=== PATIENT | female | born 1955 | race Caucasian/White ===

== ENCOUNTER 2017-07-19 12:37 | Emergency (ER) | payer OTHER ==
[~2017-07-19 12:37] MED LIST: CELEXA20 MG PO; Estrogen PO; KLONOPIN1 MG PO; MOTRIN800 MG PO; NOR10T PO; Norco PO; PRILOSEC20 MG PO; ROBAXIN-750750 MG GT
== END 2017-07-19 13:13 | disposition left against medical advice (07) ==
LOC: ED 12:37
DX: Z53.21 Procedure and treatment not carried out due to patient leaving prior to being seen by health care provider (principal)

== ENCOUNTER 2017-07-19 15:44 | Emergency (ER) | payer OTHER ==
[2017-07-19 19:19] VITALS: BP 134/89
== END 2017-07-19 19:19 | disposition home or self-care (01) ==
LOC: ED 15:44
DX: M54.5 Low back pain (principal); G89.29 Other chronic pain; N39.0 Urinary tract infection, site not specified; M19.90 Unspecified osteoarthritis, unspecified site; Z88.2 Allergy status to sulfonamides
CPT/HCPCS: J1885

== ENCOUNTER 2017-08-17 07:57 | Emergency (ER) | payer OTHER ==
[2017-08-17 09:58] VITALS: BP 147/95
== END 2017-08-17 09:58 | disposition home or self-care (01) ==
LOC: ED 07:57
DX: G89.29 Other chronic pain (principal); M25.562 Pain in left knee; M25.561 Pain in right knee; M19.90 Unspecified osteoarthritis, unspecified site; Z88.2 Allergy status to sulfonamides
CPT/HCPCS: J2270; Q0162

== ENCOUNTER 2017-08-31 10:36 | Emergency (ER) | payer OTHER ==
[~2017-08-31] VITALS: Ht 157.5 cm; Wt 95.7 kg
[2017-08-31 10:48] VITALS: Ht 157.5 cm; Wt 95.7 kg
[2017-08-31 12:58] VITALS: BP 118/81
== END 2017-08-31 12:58 | disposition home or self-care (01) ==
LOC: ED 10:36
DX: G89.29 Other chronic pain (principal); M54.5 Low back pain; M19.90 Unspecified osteoarthritis, unspecified site; F17.200 Nicotine dependence, unspecified, uncomplicated; Z88.2 Allergy status to sulfonamides
CPT/HCPCS: J3010

== ENCOUNTER 2020-01-14 02:37 | Emergency (ER) | payer OTHER ==
[~2020-01-14] VITALS: Ht 154.9 cm; Wt 75.9 kg
[2020-01-14 04:34] VITALS: BP 128/71
== END 2020-01-14 04:34 | disposition home or self-care (01) ==
LOC: ED 02:37
DX: S29.9XXA Unspecified injury of thorax, initial encounter (principal); Z88.2 Allergy status to sulfonamides; W22.8XXA Striking against or struck by other objects, initial encounter; Y93.89 Activity, other specified; Y92.89 Other specified places as the place of occurrence of the external cause; Y99.8 Other external cause status
CPT/HCPCS: J1885